=== PATIENT | male | born 1945 | race Caucasian/White ===

== ENCOUNTER 2016-06-24 10:16 | Emergency (ER) | payer MEDICARE, BC ==
[2016-06-24 11:00] VITALS: BP 138/82
--- NOTE | 2016-06-24 11:49 | RAD ---
INDICATION: Calcaneal foreign body. Pain. COMPARISON: None TECHNIQUE: AP, lateral, and oblique views were obtained. FINDINGS: There are no acute osseous findings. There is no significant osteoarthritis. There are Achilles and plantar calcaneal spurs. There is no radiopaque foreign body. IMPRESSION: NO RADIOPAQUE FOREIGN BODY
--- NOTE | 2016-07-04 15:53 | UC ---
Lower Extremity/Ankle HPI - HPI Summary HPI Summary: 10 days of right heal pain with a small area with a black spot patient believes it could be a fb - History of Current Complaint Chief Complaint: UCLowerExtremity Stated Complaint: FOOT PAIN Time Seen by Provider: 06/24/16 11:05 Hx Obtained From: Patient Onset/Duration: Sudden Onset Severity Initially: Mild Severity Currently: Mild Pain Intensity: 4 Pain Scale Used: 0-10 Numeric Aggravating Factor(s): Standing, Ambulation Alleviating Factor(s): Rest, Elevation Able to Bear Weight: Yes - Allergies/Home Medications Allergies/Adverse Reactions: Allergies Allergy/AdvReac Type Severity Reaction Status Date / Time No Known Allergies Allergy Verified 09/27/12 07:26 Home Medications: Home Medications NK [No Home Medications Reported] 06/24/16 [History Confirmed 06/24/16] PMH/Surg Hx/FS Hx/Imm Hx Previously Healthy: No Endocrine History Of: Denies: Diabetes, Thyroid Disease, Hyperthyroidism, Hypothyroidism, Dyslipidemia Cardiovascular History Of: Denies: Cardiac Disorders, Hypertension, Pacemaker/ICD, Myocardial Infarction , Congestive Heart Failure, Atrial Fibrillation, Deep Vein Thrombosis, Bleeding Disorders Respiratory History Of: Denies: COPD, Asthma, Bronchitis, Pneumonia, Pulmonary Embolism GI/ History Of: Denies: Gastroesophageal Reflux, Ulcer, Gastrointestinal Bleed, Gall Bladder Disease, Kidney Stones, Diverticulitis, Renal Disease, Urosepsis Neurological History Of: Reports: Migraine - HAS NOT HAD ANY IN MANY YEARS Denies: TIA, CVA, Dementia, Seizures Psychological History Of: Denies: Anxiety, Depression, Bipolar Disorder, Schizophrenia, Post Traumatic Stress Disorder Cancer History Of: Denies: Lung Cancer, Colorectal Cancer, Breast Cancer, Prostate Cancer, Cervical Cancer - Surgical History Surgical History: Yes Surgery Procedure, Year, and Place: 1961 RT [facility]NEE [facility] [place] Right knee replacement 2012. 2006 LEFT KNEE [facility]. 2005 LUMBAR DISK SURGERY [facility] - Family History Known Family History: Positive: None Family History: no known cardio vascular disorders in family lineage - Social History Occupation: Retired Lives: With Family Alcohol Use: Occasionally Substance Use Type: None Smoking Status (MU): Former Smoker Type: Cigarettes Length of Time of Smoking/Using Tobacco: 25 - 30 years When Did the Patient Quit Smoking/Using Tobacco: 10 years ago - Immunization History Most Recent Tetanus Shot: UTD Review of Systems Constitutional: Negative Skin: Other - spot on bottom of right heal Eyes: Negative ENT: Negative Respiratory: Negative Cardiovascular: Negative Gastrointestinal: Negative Genitourinary: Negative Motor: Negative Neurovascular: Negative Musculoskeletal: Negative Neurological: Negative Psychological: Negative All Other Systems Reviewed And Are Negative: Yes Physical Exam Triage Information Reviewed: Yes Appearance: Well-Appearing, No Pain Distress, Well-Nourished Vital Signs: Initial Vital Signs Temp 97.6 F 06/24/16 10:54 Pulse 56 06/24/16 10:54 Resp 16 06/24/16 10:54 BP 138/82 06/24/16 10:54 Pulse Ox 96 06/24/16 10:54 Vital Signs Reviewed: Yes Eye Exam: Normal Eyes: Positive: Conjunctiva Clear ENT Exam: Normal ENT: Positive: Normal ENT inspection, Hearing grossly normal, Pharynx normal. Negative: Nasal congestion, Nasal drainage, Trismus, Muffled/hoarse voice Neck exam: Normal Neck: Positive: Supple, Nontender Respiratory Exam: Normal Respiratory: Positive: Chest non-tender, No respiratory distress, No accessory muscle use Cardiovascular Exam: Normal Cardiovascular: Positive: RRR, Pulses Normal, Brisk Capillary Refill Musculoskeletal Exam: Normal Musculoskeletal: Positive: Strength Intact, ROM Intact, No Edema Neurological Exam: Normal Neurological: Positive: Alert, Muscle Tone Normal Psychological Exam: Normal Skin: Positive: Other - small black spot on bottom of right heel with some erroded skin around it Diagnostics - Laboratory Diagnostic Studies Completed/Ordered: negative for radiopaque f.b. Lower Extremity Course/Dx - Course Course Of Treatment: wart removal pad, follow with podiatry - Differential Dx/Diagnosis Differential Diagnosis/HQI/PQRI: Contusion, Foreign Body, Infection, Other - plantar wart Provider Diagnoses: Plantar wart right heel Discharge - Discharge Plan Condition: Stable Disposition: HOME Patient Education Materials: Plantar Wart (ED), Keratolytic Wart Removal (ED), Cryotherapy Wart Removal (GEN) Referrals: Franck Garcia DPM [Doctor of Podiatric Medicine] - If Needed Maribel Lewis DPM [Doctor of Podiatric Medicine] - If Needed Nghia Castillo MD [Primary Care Provider] - Denver Wade DPM [Doctor of Podiatric Medicine] - If Needed
== END 2016-06-24 12:13 | disposition home or self-care (01) ==
LOC: UCEAST 10:16
DX: B07.0 Plantar wart (principal); Z87.891 Personal history of nicotine dependence
CPT/HCPCS: 99211; G0463

== ENCOUNTER 2016-07-21 13:17 | Emergency (ER) | payer MEDICARE, BC ==
[2016-07-21 15:02] VITALS: BP 152/99
--- NOTE | 2016-07-21 15:34 | UC ---
FLU HPI - HPI Summary HPI Summary: Cough, cold, sorethroat head congestion no fevers for 4 days, did not get a flu vaccine this year - History of Current Complaint Chief Complaint: UCRespiratory Stated Complaint: HEAD CONGESTION COUGH Time Seen by Provider: 07/21/16 15:26 Hx Obtained From: Patient Onset/Duration: Sudden Onset, Lasting Days - 4, Still Present Severity Currently: Mild Severity Initially: Mild Pain Intensity: 4 Pain Scale Used: 0-10 Numeric Associated Signs & Symptoms: Positive: Cough, Sore Throat, Nasal Congestion, Headache - Allergy/Home Medications Allergies/Adverse Reactions: Allergies Allergy/AdvReac Type Severity Reaction Status Date / Time No Known Allergies Allergy Verified 07/21/16 15:02 Home Medications: Home Medications Dextromethorphan-Phenylephrine [Vicks Dayquil Cold & Flu 10-5-325 mg/15Ml] 1 liq PO PRN 07/21/16 [History] PMH/Surg Hx/FS Hx/Imm Hx Previously Healthy: Yes Endocrine History Of: Denies: Diabetes, Thyroid Disease, Hyperthyroidism, Hypothyroidism, Dyslipidemia Cardiovascular History Of: Denies: Cardiac Disorders, Hypertension, Pacemaker/ICD, Myocardial Infarction , Congestive Heart Failure, Atrial Fibrillation, Deep Vein Thrombosis, Bleeding Disorders Respiratory History Of: Denies: COPD, Asthma, Bronchitis, Pneumonia, Pulmonary Embolism GI/ History Of: Denies: Gastroesophageal Reflux, Ulcer, Gastrointestinal Bleed, Gall Bladder Disease, Kidney Stones, Diverticulitis, Renal Disease, Urosepsis Neurological History Of: Reports: Migraine - HAS NOT HAD ANY IN MANY YEARS Denies: TIA, CVA, Dementia, Seizures Psychological History Of: Denies: Anxiety, Depression, Bipolar Disorder, Schizophrenia, Post Traumatic Stress Disorder Cancer History Of: Denies: Lung Cancer, Colorectal Cancer, Breast Cancer, Prostate Cancer, Cervical Cancer - Surgical History Surgical History: Yes Surgery Procedure, Year, and Place: 1961 RT [place] [facility] [place] Right knee replacement 2012. 2006 LEFT KNEE [facility]. 2005 LUMBAR DISK SURGERY [place] - Family History Known Family History: Positive: None Family History: no known cardio vascular disorders in family lineage - Social History Occupation: Retired Lives: Alone Alcohol Use: Occasionally Substance Use Type: None Smoking Status (MU): Former Smoker Type: Cigarettes Length of Time of Smoking/Using Tobacco: 25 - 30 years When Did the Patient Quit Smoking/Using Tobacco: 10 years ago - Immunization History Most Recent Tetanus Shot: UTD Review of Systems Constitutional: Fatigue Skin: Negative Eyes: Negative ENT: Sore Throat, Nasal Discharge Respiratory: Cough Cardiovascular: Negative Gastrointestinal: Negative Genitourinary: Negative Motor: Negative Neurovascular: Negative Musculoskeletal: Myalgia Neurological: Negative Psychological: Negative All Other Systems Reviewed And Are Negative: Yes Physical Exam Triage Information Reviewed: Yes Appearance: Well-Appearing, No Pain Distress, Well-Nourished Vital Signs: Initial Vital Signs Temp 98.4 F 07/21/16 14:59 Pulse 66 07/21/16 14:59 Resp 16 07/21/16 14:59 BP 152/99 07/21/16 14:59 Pulse Ox 100 07/21/16 14:59 Vital Signs Reviewed: Yes Eye Exam: Normal Eyes: Positive: Conjunctiva Clear ENT Exam: Normal ENT: Positive: Normal ENT inspection, Hearing grossly normal, Pharyngeal erythema, Nasal congestion, Nasal drainage, TMs normal. Negative: Tonsillar swelling, Tonsillar exudate, Trismus, Muffled/hoarse voice Dental Exam: Normal Neck exam: Normal Neck: Positive: Supple, Nontender, No Lymphadenopathy Respiratory Exam: Normal Respiratory: Positive: Chest non-tender, Lungs clear, Normal breath sounds, No respiratory distress, No accessory muscle use Cardiovascular Exam: Normal Cardiovascular: Positive: RRR, No Murmur, Pulses Normal, Brisk Capillary Refill Musculoskeletal Exam: Normal Musculoskeletal: Positive: Strength Intact, ROM Intact, No Edema Neurological Exam: Normal Neurological: Positive: Alert, Muscle Tone Normal Psychological Exam: Normal Skin Exam: Normal Diagnostics - Laboratory Diagnostic Studies Completed/Ordered: RST(-), INFLUENZA A/B (-) Flu Course/Dx - Course Course Of Treatment: rest, increase fluids, otc meds for symptom relief follow with PCP re-check PRN - Differential Dx/Diagnosis Differential Diagnosis/HQI/PQRI: Broncholiolitis, Influenza, RSV, Upper Respiratory Infection Provider Diagnoses: URI Discharge - Discharge Plan Condition: Stable Disposition: HOME Patient Education Materials: Upper Respiratory Infection (ED) Referrals: Nghia Castillo MD [Primary Care Provider] - If Needed
== END 2016-07-21 16:26 | disposition home or self-care (01) ==
LOC: UCEAST 13:17
DX: J06.9 Acute upper respiratory infection, unspecified (principal); Z96.651 Presence of right artificial knee joint; Z87.891 Personal history of nicotine dependence
CPT/HCPCS: 87502; 87651; 99211; G0463

== ENCOUNTER 2017-07-18 14:42 | Emergency (ER) | payer MEDICARE, BC ==
[2017-07-18 15:50] VITALS: BP 105/72
[2017-07-18] MEDS ORDERED: Ondansetron ODT TAB* 4 MG PO ONE (16:17)
--- NOTE | 2017-07-18 16:28 | UC ---
Dewayne Amin Julia, scribed for Raj Baldwin MD on 07/18/17 at 1617 . General HPI - HPI Summary HPI Summary: This patient is a 71 year old M presenting to [facility] with a chief complaint of n/ v/d from 4:00am until 4:30am. Patient reports headaches. He states he is able to keep fluids down. Patient denies pain and bloody stool or vomit. - History of Current Complaint Chief Complaint: UCAbdominalPain Stated Complaint: NAUSEA, DIARRHEA Hx Obtained From: Patient Onset/Duration: Lasting Hours Timing: Intermittent Episodes Lasting: - 30 minutes Pain Intensity: 0 Pain Location at: headache, currently resolved Character: n/v/d Associated Signs & Symptoms: Positive: Diarrhea, Headache, Nausea, Vomiting - Allergy/Home Medications Allergies/Adverse Reactions: Allergies Allergy/AdvReac Type Severity Reaction Status Date / Time No Known Allergies Allergy Verified 07/18/17 15:43 Home Medications: Home Medications Acetaminophen TAB* [Tylenol TAB*] 650 mg PO Q4H PRN 07/18/17 [History Confirmed 07/18/17] Loperamide CAP* [Imodium CAP*] 2 mg PO Q4H PRN 07/18/17 [History Confirmed 07/18] PMH/Surg Hx/FS Hx/Imm Hx Previously Healthy: Yes - Surgical History Surgical History: Yes Surgery Procedure, Year, and Place: 1961 RT [place]NEE [facility] [place] Right knee replacement 2011. 2006 LEFT KNEE [facility]. 2004 LUMBAR DISK SURGERY [place] - Family History Known Family History: Negative: Cardiac Disease Family History: no known cardio vascular disorders in family lineage - Social History Alcohol Use: Occasionally Substance Use Type: None Smoking Status (MU): Former Smoker Type: Cigarettes Length of Time of Smoking/Using Tobacco: 25 - 30 years When Did the Patient Quit Smoking/Using Tobacco: 10 years ago - Immunization History Most Recent Tetanus Shot: UTD Review of Systems Gastrointestinal: Vomiting, Diarrhea, Nausea Neurological: Headache All Other Systems Reviewed And Are Negative: Yes Physical Exam Triage Information Reviewed: Yes Vital Signs: Initial Vital Signs Temp 98.3 F 07/18/17 15:45 Pulse 59 07/18/17 15:45 Resp 16 07/18/17 15:45 BP 105/72 07/18/17 15:45 Pulse Ox 98 07/18/17 15:45 Vital Signs Reviewed: Yes - Additional Comments Appearance: Well-appearing, Well-nourished Skin: Warm Respiratory: Clear to auscultation Cardiovascular: Normal S1, S2. No murmurs. Normal distal pulses in tibial and radial bilaterally. Abdomen: Soft, nontender. Normal bowel sounds Psychiatric: Normal General: No acute distress Course/Dx - Course Course Of Treatment: appears well, tolerating PO well, given symptomatic treatment, likely gastroenteritis based on h+p. instructed to fu with PMD. agrees to and understands dc instructions. - Differential Dx - Multi-Symptom Provider Diagnoses: gastroenteritis Discharge - Discharge Plan Condition: Improved Disposition: HOME Prescriptions: Ondansetron TAB* [Zofran 4 MG Tab*] 4 mg PO Q6H PRN #10 tab PRN Reason: Nausea/Vomiting Patient Education Materials: Gastroenteritis (ED) Referrals: Nghia Castillo MD [Primary Care Provider] - Additional Instructions: PLEASE TAKE MEDICATIONS DIRECTED PLEASE KEEP YOURSELF WELL HYDRATED WITH SMALL AMOUNTS OF FLUID MORE FREQUENTLY THROUGHOUT THE DAY PLEASE SEEK MEDICAL ATTENTION IMMEDIATELY IF YOU HAVE ANY WORSENING OR CONCERNING SYMPTOMS PLEASE MAKE AN APPOINTMENT TO BE SEEN BY YOUR PRIMARY CARE DOCTOR WITHIN 1 WEEK The documentation as recorded by the Dewayne chacon Julia accurately reflects the service I personally performed and the decisions made by me, Raj Baldwin MD.
== END 2017-07-18 16:41 | disposition home or self-care (01) ==
LOC: UCEAST 14:42
DX: K52.9 Noninfective gastroenteritis and colitis, unspecified (principal); R51 Headache; Z96.653 Presence of artificial knee joint, bilateral; Z87.891 Personal history of nicotine dependence
CPT/HCPCS: 99212; A9270-GY; G0463

== ENCOUNTER 2018-01-18 07:28 | Emergency (ER) | payer MEDICARE, BC ==
[2018-01-18 07:41] VITALS: BP 128/79
--- NOTE | 2018-01-18 07:44 | UC ---
Lower Extremity/Ankle HPI - HPI Summary HPI Summary: This is oswaldo Sol documenting for attending [facility] . This patient is a 72 year old M presenting to [facility] with a chief complaint of right ankle pain that he noticed 5 days ago. The patient rates the pain 8/10 in severity. Symptoms alleviated by elevation. Patient reports right ankle edema. Patient denies foot pain. He believes he may have hit it on something but is unsure of what or he states it may have been due to a bug bite. Pt denies recent travel or unusual activity. - History of Current Complaint Chief Complaint: UCLowerExtremity Stated Complaint: ANKLE PAIN Hx Obtained From: Patient Onset/Duration: Lasting Days - 5, Still Present Severity Initially: Severe Severity Currently: Severe Pain Intensity: 8 Pain Scale Used: 0-10 Numeric Alleviating Factor(s): Elevation Able to Bear Weight: Yes - Allergies/Home Medications Allergies/Adverse Reactions: Allergies Allergy/AdvReac Type Severity Reaction Status Date / Time No Known Allergies Allergy Verified 01/18/18 07:41 PMH/Surg Hx/FS Hx/Imm Hx Neurological History: Other Other Neurological History: wears glasses Other History Of: Negative For: HIV, Hepatitis B, Hepatitis C, Anticoagulant Therapy - Surgical History Surgical History: Yes Surgery Procedure, Year, and Place: 1961 RT KNEE [facility] Right knee replacement 2012. 2006 LEFT KNEE [facility]. 2004 LUMBAR DISK SURGERY [place] - Family History Known Family History: Negative: Cardiac Disease, Hypertension Family History: no known cardio vascular disorders in family lineage - Social History Alcohol Use: Occasionally Substance Use Type: None Smoking Status (MU): Former Smoker Type: Cigarettes Length of Time of Smoking/Using Tobacco: 25 - 30 years When Did the Patient Quit Smoking/Using Tobacco: 10 years ago - Immunization History Most Recent Tetanus Shot: UTD Review of Systems Skin: Negative - rash Musculoskeletal: Negative - foot pain, Edema, Other: - right ankle pain All Other Systems Reviewed And Are Negative: Yes Physical Exam - Summary Physical Exam Summary: General: well-appearing, no pain distress Skin: warm, color reflects adequate perfusion, dry, no rash Head: normal Eyes: EOMI, FARRUKH ENT: normal Neck: supple, nontender Respiratory: CTA, breath sounds present Cardiovascular: RRR Abdomen: soft, nontender Bowel: present Musculoskeletal: right ankle is TTP on the medial aspect, strength/ROM intact, there is some swelling, ankle has good ROM, good capillary refill, normal pulses Neurological: sensory/motor intact, A&O x3 Psychological: affect/mood appropriate Triage Information Reviewed: Yes Vital Signs: Initial Vital Signs Temp 98 F 01/18/18 07:37 Pulse 58 01/18/18 07:37 Resp 17 01/18/18 07:37 BP 128/79 01/18/18 07:37 Pulse Ox 100 01/18/18 07:37 Vital Signs Reviewed: Yes Diagnostics - Radiology ankle Xray Radiology Interpretation Completed By: Radiologist - No fracture of the right ankle is noted. Posterior calcaneal spur is noted. Dr. River has reviewed this report. Re-Evaluation - Re-Evaluation First Eval Re-Evaluation Time: 09:27 Change: Unchanged Comment: I discussed xray results and discharge with the patient. Lower Extremity Course/Dx - Course Course Of Treatment: F/U PMD; RECHECK SOONER IF WORSE. - Differential Dx/Diagnosis Provider Diagnoses: RIGHT ANKLE SPRAIN Discharge - Sign-Out/Discharge Documenting (check all that apply): Patient Departure - Discharge Plan Condition: Stable Disposition: HOME Patient Education Materials: Ankle Sprain (ED) Referrals: Nghia Castillo MD [Primary Care Provider] - Additional Instructions: FOLLOW UP WITH YOUR DOCTOR IF NOT COMPLETELY IMPROVED. REST, ICE AND ELEVATE YOUR ANKLE. GET RECHECKED FOR ANY WORSENING OF YOUR CONDITION OR QUESTIONS OR CONCERNS. - Billing Disposition and Condition Condition: STABLE Disposition: Home Attestations Scribe Attestation: This is oswaldo Sol documenting for attending [facility] . User Type: Provider with Scribe Provider Attestation: The documentation recorded by the scribe accurately reflects the service I personally performed and the decisions made by me.
--- NOTE | 2018-01-18 08:55 | RAD ---
Indication: Right ankle pain. 3 views of the right ankle demonstrates no fracture. Ankle mortise is intact. There is posterior calcaneal spur noted at the calcaneal insertion. IMPRESSION: No fracture of the right ankle is noted. Posterior calcaneal spur is noted.
== END 2018-01-18 09:30 | disposition home or self-care (01) ==
LOC: UCEAST 07:28
DX: S93.401A Sprain of unspecified ligament of right ankle, initial encounter (principal); X58.XXXA Exposure to other specified factors, initial encounter; Y93.9 Activity, unspecified; Y92.9 Unspecified place or not applicable; M77.31 Calcaneal spur, right foot; Z96.651 Presence of right artificial knee joint; Z87.891 Personal history of nicotine dependence
CPT/HCPCS: 99212; G0463

== ENCOUNTER 2018-04-18 08:02 | Emergency (ER) | payer MEDICARE, BC ==
--- OUTSIDE RECORDS SUMMARY | 2018-04-18 08:08 | XMS REPORT ---
:1945 External Reference #:[id number] Author Organization [employer] Address [address] [place] [address] [place] [address] Phone [phone] Care Team Providers Name Role Phone Nghia Castillo MD Primary Care Physician Unavailable Payers Type Date Identification Numbers Payment Provider Subscriber Medicare Primary Effective: Policy Number: Medicare Ferdinand Escobedo 2010 [id number] PayID: [id number] [address] [place] [address] Medigap Part B Effective: 2012 Policy Number: BS Facets Ferdinand Escobedo [id number] PayID: [id number] [address] [address] [place] [address] Problems Date Description Provider Status Onset: 03/17/2015 Impacted shimon Medeiros M.D. Active Family History Date Family Member(s) Problem(s) Comments General None Social History Type Date Description Comments Occupation Retired Cigarette Use Quit 8 Years Ago Cigars Never Smoked Cigars Pipe Never Smoked A Pipe Smokeless Tobacco Never Used Smokeless Tobacco ETOH Use Occasionally consumes alcohol Smoking Patient is a former smoker Allergies, Adverse Reactions, Alerts Date Description Reaction Status Severity Comments 01/15/2013 NKDA active Medications Medication Date Status Form Strength Qnty SIG Indications Ordering Provider Sumatriptan / Active Solution 20mg/Act 1 spray in Unknown 0000 one nostril as needed migraine may repeat in 2 hours max twice in 24 hours Vitamin B-12 00/00/ Active Tablet take one Unknown 0000 tablet daily Vitamin C 0000/ Active Tablets 1 by mouth Unknown 0000 every day Sumatriptan 02/01/ Hx Tablets 25mg 9tabs take one [facility] first signs M.D. 2017 of headache. if no improvement take a second tablet 2 hours after the first,- not taking No Active 11/18/ Hx Unknown Medications 2014 - 2015 No Active Hx Phil Medications 2013 - [place], 05/20/ M.D. 2014 Amoxicillin / Hx Capsules 500mg 12caps 4 tablets 1 Unknown 0000 - hour before 11/18/ dental work 2014 Vital Signs Date Vital Result Comment 03/27/2018 Height 68 inches 5'8" Weight 177.00 lb BP Systolic 128 mmHg BP Diastolic 74 mmHg BMI (Body Mass Index) 26.9 kg/m2 11/21/2017 Height 68 inches 5'8" Weight 175.00 lb Heart Rate 56 /min BP Systolic Sitting 104 mmHg BP Diastolic Sitting 60 mmHg Respiratory Rate 16 /min Pain Level 0 BMI (Body Mass Index) 26.6 kg/m2 08/15/2017 Height 68 inches 5'8" Weight 175.00 lb Heart Rate 54 /min BP Systolic Sitting 124 mmHg BP Diastolic Sitting 74 mmHg Respiratory Rate 16 /min Pain Level 0 O2 % BldC Oximetry 97 % Ra BMI (Body Mass Index) 26.6 kg/m2 05/23/2017 Height 68 inches 5'8" Weight 178.00 lb Heart Rate 72 /min BP Systolic Sitting 128 mmHg BP Diastolic Sitting 72 mmHg Respiratory Rate 16 /min Pain Level 0 BMI (Body Mass Index) 27.1 kg/m2 02/07/2017 Height 68 inches 5'8" Weight 172.00 lb Heart Rate 60 /min BP Systolic Sitting 120 mmHg BP Diastolic Sitting 64 mmHg Respiratory Rate 24 /min Pain Level 0 BMI (Body Mass Index) 26.1 kg/m2 11/01/2016 Height 68 inches 5'8" Heart Rate 53 /min BP Systolic Sitting 116 mmHg BP Diastolic Sitting 76 mmHg Respiratory Rate 16 /min O2 % BldC Oximetry 96 % 08/09/2016 Height 68 inches 5'8" Weight 170.00 lb Heart Rate 56 /min BP Systolic Sitting 122 mmHg BP Diastolic Sitting 80 mmHg Respiratory Rate 18 /min O2 % BldC Oximetry 97 % BMI (Body Mass Index) 25.8 kg/m2 05/03/2016 Height 68 inches 5'8" Weight 170.00 lb BP Systolic 126 mmHg BP Diastolic 72 mmHg BMI (Body Mass Index) 25.8 kg/m2 02/02/2016 Height 68 inches Weight 170.00 lb Heart Rate 48 /min BP Systolic Sitting 120 mmHg BP Diastolic Sitting 78 mmHg BMI (Body Mass Index) 25.8 kg/m2 06/30/2015 Heart Rate 60 /min BP Systolic Sitting 118 mmHg BP Diastolic Sitting 70 mmHg 03/17/2015 Heart Rate 60 /min BP Systolic Sitting 110 mmHg BP Diastolic Sitting 68 mmHg 11/18/2014 Heart Rate 76 /min BP Systolic Sitting 120 mmHg BP Diastolic Sitting 76 mmHg 05/20/2014 Heart Rate 76 /min BP Systolic Sitting 124 mmHg BP Diastolic Sitting 80 mmHg 01/15/2013 Heart Rate 82 /min BP Systolic Sitting 124 mmHg BP Diastolic Sitting 82 mmHg Results Description No Information Procedures Date CPT Code Description Status 11/21/2017 15972 Remove Impacted Cerumen Completed 08/15/2017 51127 Remove Impacted Cerumen Completed 05/23/2017 64554 Remove Impacted Cerumen Completed 02/07/2017 18695 Remove Impacted Cerumen Completed 11/01/2016 45942 Remove Impacted Cerumen Completed 08/09/2016 65657 Remove Impacted Cerumen Completed 05/03/2016 46739 Remove Impacted Cerumen Completed 02/02/2016 80941 Remove Impacted Cerumen Completed 09/22/2015 09830 Remove Impacted Cerumen Completed 06/30/2015 83408 Remove Impacted Cerumen Completed 03/17/2015 22720 Remove Impacted Cerumen Completed 11/18/2014 28063 Remove Impacted Cerumen Completed 05/20/2014 20310 Remove Impacted Cerumen Completed 01/15/2013 35012 Remove Impacted Cerumen Completed Plan of Care Future Appointment(s):07/31/2018 2:00 pm - Phil Medeiros M.D. at [facility]
[2018-04-18 08:14] VITALS: BP 162/79
--- NOTE | 2018-04-18 09:44 | UC ---
Respiratory Complaint HPI - HPI Summary HPI Summary: Mr. Escobedo has had URI symptomatology for a week or 2 and now is coughing paroxysmally and productively. He does not think he's had a fever. Smoker but quit about 15 years ago and doesn't believe he has any underlying - History of Current Complaint Chief Complaint: UCRespiratory Stated Complaint: URI Time Seen by Provider: 04/18/18 08:17 Pain Intensity: 6 - Allergies/Home Medications Allergies/Adverse Reactions: Allergies Allergy/AdvReac Type Severity Reaction Status Date / Time No Known Allergies Allergy Verified 04/18/18 08:14 Home Medications: Home Medications Dm/PE/Acetaminophen/Doxylamine [Vicks Dayquil/Nyquil Cold] 1 mis PO 04/18/18 [ History] PMH/Surg Hx/FS Hx/Imm Hx Previously Healthy: Yes Other History Of: Negative For: HIV, Hepatitis B, Hepatitis C, Anticoagulant Therapy - Surgical History Surgical History: Yes Surgery Procedure, Year, and Place: 1961 RT KNEE [place] Right knee replacement 2011. 2006 LEFT KNEE [facility]. 2004 LUMBAR DISK SURGERY [place] - Family History Known Family History: Negative: Cardiac Disease, Hypertension Family History: no known cardio vascular disorders in family lineage - Social History Alcohol Use: Occasionally Substance Use Type: None Smoking Status (MU): Former Smoker Type: Cigarettes Length of Time of Smoking/Using Tobacco: 25 - 30 years When Did the Patient Quit Smoking/Using Tobacco: 10 years ago - Immunization History Most Recent Tetanus Shot: UTD Review of Systems Skin: Negative Eyes: Negative ENT: Sore Throat, Nasal Discharge, Sinus Congestion Respiratory: Cough Cardiovascular: Negative Neurological: Negative All Other Systems Reviewed And Are Negative: No Physical Exam - Summary Physical Exam Summary: He was nontoxic in appearance and his vital signs are stable. Triage Information Reviewed: Yes Appearance: Well-Appearing, No Pain Distress, Well-Nourished Vital Signs: Initial Vital Signs Temp 98.0 F 04/18/18 08:09 Pulse 60 04/18/18 08:09 Resp 18 04/18/18 08:09 BP 162/79 04/18/18 08:09 Pulse Ox 97 04/18/18 08:09 Vital Signs Reviewed: Yes ENT Exam: Normal Neck: Positive: Supple, Nontender, No Lymphadenopathy Respiratory: Positive: Chest non-tender Cardiovascular: Positive: RRR Neurological Exam: Normal UC Diagnostic Evaluation - Laboratory O2 Sat by Pulse Oximetry: 97 - Radiology Radiology Interpretation Completed By: Radiologist Summary of Radiographic Findings: CXR: COPD Respiratory Course/Dx - Course Course Of Treatment: Mr. Israel's phone and likely has a viral URI. The concern was possible secondary bacterial infection and although he prior to this was not aware, but he does have some underlying COPD. For that reason I will treat him with antibiotics and cough medicine. - Differential Dx/Diagnosis Provider Diagnoses: Bronchitis Discharge - Sign-Out/Discharge Documenting (check all that apply): Patient Departure All imaging exams completed and their final reports reviewed: Yes - Discharge Plan Condition: Stable Disposition: HOME Referrals: Nghia Castillo MD [Primary Care Provider] - - Billing Disposition and Condition Condition: STABLE Disposition: Home
== END 2018-04-18 09:48 | disposition home or self-care (01) ==
LOC: UCEAST 08:02
DX: J40 Bronchitis, not specified as acute or chronic (principal); Z87.891 Personal history of nicotine dependence
CPT/HCPCS: 71046; 99212; G0463

== ENCOUNTER 2018-06-12 10:48 | Emergency (ER) | payer MEDICARE, BC ==
[2018-06-12 11:28] VITALS: BP 139/73
--- NOTE | 2018-06-12 11:50 | UC ---
Throat Pain/Nasal Pavel HPI - HPI Summary HPI Summary: 72 yo male presents with sinus congestion for 2 days. He tells me that about a month or two ago he had similar symptoms that developed into bronchitis and was treated with an anbx. He has been taking zicam, dayquill, and nyquill with no relief. Denies fever, chills, sore throat, cough. - History of Current Complaint Chief Complaint: UCRespiratory Stated Complaint: SINUS PAIN Time Seen by Provider: 06/12/18 11:50 Hx Obtained From: Patient Onset/Duration: Sudden Onset Severity: Mild Pain Intensity: 3 Pain Scale Used: 0-10 Numeric - Allergies/Home Medications Allergies/Adverse Reactions: Allergies Allergy/AdvReac Type Severity Reaction Status Date / Time No Known Allergies Allergy Verified 06/12/18 11:28 Home Medications: Home Medications Ascorbic Acid [Eql Vitamin C] 1,000 mg PO DAILY 06/12/18 [History Confirmed ] Cyanocobalamin (Vitamin B-12) [Vitamin B-12] 1,000 mcg PO DAILY 06/12/18 [ History Confirmed 06/12/18] PMH/Surg Hx/FS Hx/Imm Hx - Additional Past Medical History Additional PMH: None Other History Of: Negative For: HIV, Hepatitis B, Hepatitis C, Anticoagulant Therapy - Surgical History Surgical History: Yes Surgery Procedure, Year, and Place: 1961 RT [place] Right knee replacement 2011. 2006 LEFT KNEE cartilage repair [facility] [place]. 2004 LUMBAR DISK SURGERY [place] - Family History Known Family History: Positive: None - Pt deneis FMHX Negative: Cardiac Disease, Hypertension Family History: no known cardio vascular disorders in family lineage - Social History Occupation: Retired Lives: With Family Alcohol Use: None Substance Use Type: None Smoking Status (MU): Former Smoker Type: Cigarettes Length of Time of Smoking/Using Tobacco: 25 - 30 years When Did the Patient Quit Smoking/Using Tobacco: 10 years ago - Immunization History Most Recent Tetanus Shot: UTD Review of Systems All Other Systems Reviewed And Are Negative: Yes Constitutional: Positive: Negative Skin: Positive: Negative Eyes: Positive: Negative ENT: Positive: Sinus Congestion Respiratory: Positive: Negative Cardiovascular: Positive: Negative Gastrointestinal: Positive: Negative Neurovascular: Positive: Negative Neurological: Positive: Negative Psychological: Positive: Negative Physical Exam - Summary Physical Exam Summary: GENERAL: NAD. WDWN. No pain distress. SKIN: No rashes, sores, lesions, or open wounds. HEENT: Head: AT/NC Eyes: EOM intact. Conjunctiva clear without inflammation or discharge. Ears: Hearing grossly normal. TMs intact, no bulging, erythema, or edema. Nose: Nasal mucosa pink and moist. NTTP maxillary and frontal sinus. Throat: Posterior oropharynx without exudates, erythema, or tonsillar enlargement. Uvula midline. NECK: Supple. Nontender. No lymphadenopathy. CHEST: CTAB. No r/r/w. No accessory muscle use. Breathing comfortably and in no distress. CV: RRR. Without m/r/g. Pulses intact. Cap refill <2seconds NEURO: Alert. PSYCH: Age appropriate behavior. Triage Information Reviewed: Yes Vital Signs: Initial Vital Signs Temp 98.9 F 06/12/18 11:24 Pulse 55 06/12/18 11:24 Resp 18 06/12/18 11:24 BP 139/73 06/12/18 11:24 Pulse Ox 97 06/12/18 11:24 Vital Signs Reviewed: Yes Throat Pain/Nasal Course/Dx - Course Course Of Treatment: Suspect viral sinusitis. Advised to continue OTC methods and f/u if symptoms do not improve - Differential Dx/Diagnosis Provider Diagnosis: Viral sinusitis Discharge - Sign-Out/Discharge Documenting (check all that apply): Patient Departure All imaging exams completed and their final reports reviewed: No Studies - Discharge Plan Condition: Stable Disposition: HOME Patient Education Materials: Rhinosinusitis (ED) Referrals: Nghia Castillo MD [Primary Care Provider] - Additional Instructions: If you develop a fever, shortness of breath, chest pain, new or worsening symptoms - please call your PCP or go to the ED. Continue your over the counter medications. Also start taking Mucinex as directed - Billing Disposition and Condition Condition: STABLE Disposition: Home
== END 2018-06-12 12:05 | disposition home or self-care (01) ==
LOC: UCEAST 10:48
DX: J32.9 Chronic sinusitis, unspecified (principal); B97.89 Other viral agents as the cause of diseases classified elsewhere; Z87.891 Personal history of nicotine dependence
CPT/HCPCS: 99211; G0463